=== PATIENT | female | born 1975 | race African-American/Black ===

== ENCOUNTER 2018-07-03 05:50 | Emergency (ER) | payer MEDICAID ==
[~2018-07-03] VITALS: Ht 170.2 cm; Wt 91.0 kg
[2018-07-03] MEDS ORDERED: TRAMADOL 50MG TABLET PO ONE (06:30)
[2018-07-03 07:44] LABS: *AMPHETAMINES SCREEN URINE NEGATIVE (NEGATIVE); *BARBITURATES SCREEN URINE NEGATIVE (NEGATIVE); *BENZODIAZEPINES SCREEN URINE NEGATIVE (NEGATIVE); *COCAINE SCREEN URINE NEGATIVE (NEGATIVE); METHADONE URINE SCREEN NEGATIVE (NEGATIVE); OPIATES URINE SCREEN NEGATIVE (NEGATIVE); PHENCYCLIDINE URINE SCREEN NEGATIVE (NEGATIVE)
[2018-07-03 07:45] LABS: CANNABINOID URINE SCREEN PRESUMTIVE POSITIVE (NEGATIVE)
[2018-07-03] MEDS ORDERED: KETOROLAC 60MG/2ML VIAL IM ONE (10:45)
[2018-07-03 10:55] VITALS: BP 117/74
== END 2018-07-03 11:39 | disposition home or self-care (01) ==
LOC: ER 05:50
DX: M54.2 Cervicalgia (principal); M54.6 Pain in thoracic spine; M54.5 Low back pain; F31.9 Bipolar disorder, unspecified
CPT/HCPCS: 70450; 72070; 72100; 72125; 80305; 81025; 96372; 99285; J1885

== ENCOUNTER 2021-06-18 00:04 | Emergency (ER) | payer MEDICAID ==
[~2021-06-18] VITALS: Ht 170.2 cm; Wt 65.0 kg
[2021-06-18] MEDS ORDERED: LORAZEPAM 1MG TABLET PO ONE (01:30)
[2021-06-18 02:39] LABS: BASOPHILS % 0.9 % (0.0-2.0); EOSINOPHILS % 0.4 % (0.0-5.0); HEMOGLOBIN. 15.5 g/dL (12.0-16.0); LYMPHOCYTES % 21.6 % (20.0-50.0); MEAN CORPUSCULAR HEMOGLOBIN 33.4 pg (28.0-32.0); MEAN CORPUSCULAR VOLUME 99.4 fL (81.0-99.0); MEAN PLATELET VOLUME 7.9 fl (7.4-10.4); MONOCYTES % 9.6 % (2.0-8.0); NEUTROPHILS % 67.5 % (40.0-76.0); PLATELET 240 x1000/uL (130-400); RED BLOOD CELL COUNT 4.63 mill/uL (4.2-5.4); RED CELL DISTRIBUTION WIDTH 14.6 % (11.6-14.6)
[2021-06-18 02:43] LABS: CHLORIDE 106 mEq/L (98-107)
[2021-06-18 02:47] LABS: ETHANOL BLOOD < 10 mg/dL
[2021-06-18] MEDS ORDERED: ARIPIPRAZOLE 5MG TABLET PO SCH (09:00)
[2021-06-18 13:36] LABS: CLARITY URINE CLOUDY (CLEAR); COLOR URINE YELLOW (YELLOW); KETONES URINE 1+ (NEGATIVE); LEUKOCYTE ESTERASE URINE NEGATIVE (NEGATIVE); NITRITE URINE NEGATIVE (NEGATIVE); OCCULT BLOOD URINE 2+ (NEGATIVE); PROTEIN URINE NEGATIVE (NEGATIVE)
[2021-06-18 13:48] LABS: *BARBITURATES SCREEN URINE NEGATIVE (NEGATIVE)
[2021-06-18 13:49] LABS: *AMPHETAMINES SCREEN URINE NEGATIVE (NEGATIVE); *BENZODIAZEPINES SCREEN URINE NEGATIVE (NEGATIVE); METHADONE URINE SCREEN NEGATIVE (NEGATIVE); OPIATES URINE SCREEN NEGATIVE (NEGATIVE)
[2021-06-18 13:50] LABS: PHENCYCLIDINE URINE SCREEN NEGATIVE (NEGATIVE)
[2021-06-18 13:51] LABS: *COCAINE SCREEN URINE PRESUMTIVE POSITIVE (NEGATIVE)
[2021-06-18 13:52] LABS: CANNABINOID URINE SCREEN PRESUMTIVE POSITIVE (NEGATIVE)
[2021-06-18] MEDS ORDERED: ACETAMINOPHEN 325MG TABLET PO ONE (17:15)
[2021-06-18] MEDS ORDERED: TRAZODONE HCL 50MG TABLET PO SCH (21:00)
[2021-06-19 21:30] VITALS: BP 137/84
== END 2021-06-19 21:36 ==
LOC: ER 00:04
DX: F32.A Depression, unspecified (principal); R45.851 Suicidal ideations; F12.10 Cannabis abuse, uncomplicated; F14.10 Cocaine abuse, uncomplicated; Z75.1 Person awaiting admission to adequate facility elsewhere
CPT/HCPCS: 36415; 80053; 80305; 80320; 81003; 81025; 85025; 99285; C9803; U0003; U0005; G0480

== ENCOUNTER 2021-11-27 16:55 | Emergency (ER) | payer MEDICAID ==
[~2021-11-27] VITALS: Ht 167.6 cm; Wt 87.0 kg
[2021-11-27 17:01] VITALS: BP 105/74
[2021-11-28] MEDS ORDERED: CEPH500T MT (14:30)
== END 2021-11-27 22:04 | disposition left against medical advice (07) ==
LOC: ER 16:55
DX: Z53.21 Procedure and treatment not carried out due to patient leaving prior to being seen by health care provider (principal); I49.9 Cardiac arrhythmia, unspecified
CPT/HCPCS: 93005

== ENCOUNTER 2021-11-28 08:51 | Emergency (ER) | payer MEDICAID ==
[~2021-11-28] VITALS: Ht 170.2 cm; Wt 88.0 kg
[2021-11-28] MEDS ORDERED: ONDANSETRON HCL 4MG/2ML INJ IV STA (09:08)
[2021-11-28] MEDS ORDERED: SODIUM CHLORIDE 0.9% 1,000 ML IV ONE (09:15)
[2021-11-28] MEDS ORDERED: MORPHINE SULFATE 4 MG/ML CPJ (NOT FOR IM USE) IV ONE (09:30)
[2021-11-28 09:31] LABS: BASOPHILS % 0.6 % (0.0-2.0); EOSINOPHILS % 0.5 % (0.0-5.0); HEMATOCRIT. 40.1 % (36.0-48.0); HEMOGLOBIN. 13.4 g/dL (12.0-16.0); LYMPHOCYTES % 19.7 % (20.0-50.0); MEAN CORPUSCULAR HEMOGLOBIN 31.9 pg (28.0-32.0); MEAN CORPUSCULAR VOLUME 95.7 fL (81.0-99.0); MEAN PLATELET VOLUME 7.8 fl (7.4-10.4); MONOCYTES % 7.9 % (2.0-8.0); NEUTROPHILS % 71.3 % (40.0-76.0); PLATELET 269 x1000/uL (130-400); RED BLOOD CELL COUNT 4.19 mill/uL (4.2-5.4); RED CELL DISTRIBUTION WIDTH 13.7 % (11.6-14.6)
[2021-11-28 09:35] LABS: CHLORIDE 112 mEq/L (98-107)
[2021-11-28 09:57] LABS: HCG SCREEN NEGATIVE
[2021-11-28] MEDS ORDERED: IOHEXOL-300 100 ML BOTTLE ONE (11:02)
[2021-11-28 11:41] LABS: CLARITY URINE CLEAR (CLEAR); COLOR URINE YELLOW (YELLOW); KETONES URINE NEGATIVE (NEGATIVE); LEUKOCYTE ESTERASE URINE NEGATIVE (NEGATIVE); NITRITE URINE NEGATIVE (NEGATIVE); OCCULT BLOOD URINE TRACE (NEGATIVE); PROTEIN URINE NEGATIVE (NEGATIVE); SPECIFIC GRAVITY URINE 1.023 (1.005-1.030); UROBILINOGEN URINE 0.2 E.U./dL (0.2-1.0)
[2021-11-28] MEDS ORDERED: CEPH500T MT (14:30)
[2021-11-28 16:29] VITALS: BP 112/59
== END 2021-11-28 16:32 | disposition home or self-care (01) ==
LOC: ER 08:51
DX: D25.9 Leiomyoma of uterus, unspecified (principal); N39.0 Urinary tract infection, site not specified
CPT/HCPCS: 36415; 74177; 76830; 76856; 80053; 81003; 84703; 85025; 93005; 96361; 96374; 96375; 99285; J2270; J2405; J7030; Q9967

== ENCOUNTER 2022-02-15 05:13 | Emergency (ER) | payer MEDICAID, OTHER ==
[~2022-02-15] VITALS: Ht 167.6 cm; Wt 92.0 kg
[~2022-02-15 05:13] MED LIST: CEPH500T MT
[2022-02-15 06:23] LABS: BASOPHILS % 1.1 % (0.0-2.0); CLARITY URINE CLEAR (CLEAR); COLOR URINE YELLOW (YELLOW); EOSINOPHILS % 0.7 % (0.0-5.0); HEMATOCRIT. 37.3 % (36.0-48.0); HEMOGLOBIN. 12.8 g/dL (12.0-16.0); KETONES URINE NEGATIVE (NEGATIVE); LEUKOCYTE ESTERASE URINE 2+ (NEGATIVE); LYMPHOCYTES % 22.6 % (20.0-50.0); MEAN CORPUSCULAR HEMOGLOBIN 32.6 pg (28.0-32.0); MEAN CORPUSCULAR VOLUME 95.1 fL (81.0-99.0); MEAN PLATELET VOLUME 8.1 fl (7.4-10.4); MONOCYTES % 9.5 % (2.0-8.0); NEUTROPHILS % 66.1 % (40.0-76.0); NITRITE URINE NEGATIVE (NEGATIVE); OCCULT BLOOD URINE TRACE (NEGATIVE); PH URINE 6.5 (4.5-8.0); PLATELET 256 x1000/uL (130-400); PROTEIN URINE NEGATIVE (NEGATIVE); RED BLOOD CELL COUNT 3.92 mill/uL (4.2-5.4); SPECIFIC GRAVITY URINE 1.017 (1.005-1.030); UROBILINOGEN URINE 0.2 E.U./dL (0.2-1.0)
[2022-02-15] MEDS ORDERED: KETOROLAC 15MG/ML VIAL IV ONE (06:30)
[2022-02-15 06:36] LABS: CHLORIDE 106 mEq/L (98-107)
[2022-02-15 07:19] VITALS: BP 116/79
[2022-02-15] MEDS ORDERED: CEPH500T MT ×3 (07:59→08:25)
== END 2022-02-15 08:13 | disposition home or self-care (01) ==
LOC: ER 05:13
DX: N39.0 Urinary tract infection, site not specified (principal)
CPT/HCPCS: 36415; 74176; 80053; 81003; 83690; 85025; 96374; 99284; J1885